=== PATIENT | male | born 2000 | race Caucasian/White ===

== ENCOUNTER 2021-12-28 14:36 | Emergency (ER) | payer OTHER ==
[2021-12-28] MEDS ORDERED: LIDOCAINE 1% MPF 5 ML VIAL ONE (15:06)
--- NOTE | 2021-12-28 15:14 | EDPHYS ---
Physician Documentation [facility] Name: Orlando Ferrara Age: 21 yrs Sex: Male : 2000 Arrival Date: 12/28/2021 Time: 14:39 Bed Waiting Private MD: ED Physician Davide Leroy HPI: 12/28 14:56 This 21 yrs old Male presents to ER via Ambulatory with complaints of Laceration To jmm Hand. 14:56 1-year-old male no chronic medical conditions presents emerged department with a jmm laceration to his left hand. This occurred after working with sheet metal. Patient does not have any concerns for foreign body. Patient is up-to-date on his tetanus immunization.. Historical: - Allergies: 14:57 No Known Allergies; ap3 - Home Meds: 14:57 None [Active]; ap3 - PMHx: 14:57 None; ap3 - Immunization history:: Last tetanus immunization: up to date. - Social history:: Smoking status: Reported history of juuling and/or vaping. Patient uses street drugs, marijuana. ROS: 14:56 Constitutional: Negative for fever, chills, and weight loss, Cardiovascular: Negative jmm for chest pain, palpitations, and edema, Respiratory: Negative for shortness of breath, cough, wheezing, and pleuritic chest pain. 14:56 Skin: Positive for laceration(s). 14:56 All other systems are negative. Exam: 14:56 Constitutional: This is a well developed, well nourished patient who is awake, alert, jmm and in no acute distress. Cardiovascular: Regular rate and rhythm. No edema appreciated Respiratory: Normal respirations, no respiratory distress appreciated 14:56 Back: Normal ROM 14:56 Musculoskeletal/extremity: 1 similar laceration noted to the left ulnar side of the palm of the left hand. 14:56 Musculoskeletal/extremity: Full range of motion appreciated to the left phalanx, PIP and DIP less than 2-second distal cap refill, neurovascular intact. 14:56 Skin: injury, laceration(s), the wound is approximately 1 cm(s). 14:56 Neuro: Orientation: is normal, Mentation: is normal, Memory: is normal. 14:56 Psych: Behavior/mood is pleasant, cooperative. Vital Signs: 14:56 BP 140 / 96; Pulse 87; Resp 17; Temp 98.4; Pulse Ox 100% ; Weight 90.72 kg; Height 6 ap3 ft. 1 in. (185.42 cm); Pain 2/10; 14:56 Body Mass Index 26.39 (90.72 kg, 185.42 cm) ap3 Laceration: 15:13 Wound Repair of 1cm ( 0.4in ) subcutaneous laceration to left hand. Distal jmm neuro/vascular/tendon intact. Anesthesia: Local anesthetic administered with 2 mls of 1% lidocaine. Wound prep: Simple cleansing with betadine by me. Skin closed with 4 5-0 Prolene using simple sutures and sterile technique. Patient tolerated well. MDM: 14:56 Patient medically screened. jmm 15:13 Data reviewed: vital signs, nurses notes. Counseling: I had a detailed discussion with jude the patient and/or guardian regarding: the historical points, exam findings, and any diagnostic results supporting the discharge/admit diagnosis, the need for outpatient follow up, to return to the emergency department if symptoms worsen or persist or if there are any questions or concerns that arise at home. ED course: Patient given wound infection return precautions. Patient understood agrees plan of care.. Administered Medications: No medications were administered Disposition: 16:09 Co-signature as Attending Physician, Davide Leroy DO I was immediately available on-site ms3 in the Emergency Department for consultation in the care of the patient.. Disposition Summary: 12/28/21 15:14 Discharge Ordered Location: Home [facility] Condition: Stable [facility] Diagnosis - Laceration of the Left Hand [facility] Followup: [facility] - With: Private Physician - When: 10 - 14 days - Reason: Recheck today's complaints, Continuance of care, Staple/Suture removal, Re-evaluation by your physician Discharge Instructions: - Laceration Care, Adult [facility] - Discharge Summary Sheet ap3 Forms: - Medication Reconciliation Form [facility] - Thank You Letter [facility] - Antibiotic Education [facility] - Prescription Opioid Use [facility] - Work release form ap3 Signatures: Grant Kelley PA PA jmm Prokisch, Amanda, RN RN ap3 Davide Leroy DO DO ms3
--- NOTE | 2021-12-28 15:14 | ER ---
Nurse's Notes [facility] Name: Orlando Ferrara Age: 21 yrs Sex: Male : 2000 Arrival Date: 12/28/2021 Time: 14:39 Bed Waiting [facility] MD: Diagnosis: Laceration of the Left Hand Presentation: 12/28 14:56 Chief complaint: Patient states: he cut his left hand on a piece of metal today. ap3 patient is able to move fingers. Coronavirus screen: At this time, the client does not indicate any symptoms associated with coronavirus-19. Ebola Screen: No symptoms or risks identified at this time. Complicating Factors: The type of wound is a puncture. Initial Sepsis Screen: Does the patient meet any 2 criteria? No. Patient's initial sepsis screen is negative. Does the patient have a suspected source of infection? No. Patient's initial sepsis screen is negative. Risk Assessment: Do you want to hurt yourself or someone else? Patient reports no desire to harm self or others. Onset of symptoms was December 28, 2021. 14:56 Method Of Arrival: Ambulatory ap3 14:56 Acuity: ROC 4 ap3 Triage Assessment: 14:57 General: Appears in no apparent distress. Behavior is calm, cooperative, appropriate ap3 for age. Pain: Complains of pain in medial aspect of left hand Pain currently is 2 out of 10 on a pain scale. Neuro: Level of Consciousness is awake, alert, obeys commands, Oriented to person, place, time, situation, Appropriate for age. Cardiovascular: Patient's skin is warm and dry. Respiratory: Airway is patent Respiratory effort is even, unlabored. Injury Description: Laceration sustained to medial aspect of left hand. Historical: - Allergies: 14:57 No Known Allergies; ap3 - Home Meds: 14:57 None [Active]; ap3 - PMHx: 14:57 None; ap3 - Immunization history:: Last tetanus immunization: up to date. - Social history:: Smoking status: Reported history of juuling and/or vaping. Patient uses street drugs, marijuana. Screenin:59 Abuse screen: Denies threats or abuse. Nutritional screening: No deficits noted. ap3 Tuberculosis screening: No symptoms or risk factors identified. Fall Risk None identified. Assessment: 14:59 Musculoskeletal: Range of motion: intact in all extremities. ap3 15:18 Injury Description: Laceration is clean. ap3 Vital Signs: 14:56 BP 140 / 96; Pulse 87; Resp 17; Temp 98.4; Pulse Ox 100% ; Weight 90.72 kg; Height 6 ap3 ft. 1 in. (185.42 cm); Pain 2/10; 14:56 Body Mass Index 26.39 (90.72 kg, 185.42 cm) ap3 ED Course: 14:39 Patient arrived in ED. as 14:42 Grant Kelley PA is PHCP. jude 14:42 Davide Leroy DO is Attending Physician. [facility] 14:57 Triage completed. ap3 14:59 Patient has correct armband on for positive identification. ap3 14:59 Arm band placed on right wrist. ap3 15:04 Assist provider with laceration repair on left hand that was 2.5 cm. or less using ap3 sutures. Set up tray. Performed by Grant HARRIS Patient tolerated well. 15:18 Patient did not have IV access during this emergency room visit. ap3 Administered Medications: No medications were administered Medication: 14:59 VIS not applicable for this client. ap3 Outcome: 15:14 Discharge ordered by . yun 15:18 Discharged to home ambulatory. ap3 15:18 Condition: good 15:18 Discharge instructions given to patient, Instructed on discharge instructions, follow up and referral plans. wound care, Demonstrated understanding of instructions, follow-up care, wound care. 15:18 Patient left the ED. ap3 Signatures: Grant Kelley PA PA jmm Martinez, Amelia as Prokisch, Amanda, RN RN ap3
[2021-12-28 15:34] VITALS: BP 140/96; TEMP 98.4; O2SAT 100
== END 2021-12-28 15:18 | disposition home or self-care (01) ==
LOC: ER 14:36
PROC: 0JQK0ZZ Repair Left Hand Subcutaneous Tissue and Fascia, Open Approach (ICD-10-PCS; principal; 2021-12-28)
DX: S61.412A Laceration without foreign body of left hand, initial encounter (principal); W26.8XXA Contact with other sharp object(s), not elsewhere classified, initial encounter
CPT/HCPCS: 99283

== ENCOUNTER 2022-01-30 11:00 | Observation (INO) | payer OTHER ==
[2022-01-30 11:49] LABS: Absolute Lymphocytes (CBC) 1.1 K/uL (0.7-4.9); Hematocrit 46.4 % (39.6-49.0); Lymphocytes % 7.5 % (15.3-44.8); MPV 8.3 fL (7.6-11.3); RBC Red Blood Cell Count 5.53 M/uL (4.33-5.43)
[2022-01-30 12:06] LABS: Albumin 4.2 g/dL (3.4-5.0); Bilirubin Total 0.8 mg/dL (0.2-1.0); Potassium 3.8 mmol/L (3.5-5.1); Protein, Total 7.7 g/dL (6.4-8.2)
--- NOTE | 2022-01-30 12:49 | RAD REPORT ---
EXAM DESCRIPTION: CTAbdomen Pelvis W Contrast - 01/30/2022 12:43 pm CLINICAL HISTORY: lower abdominal pain COMPARISON: No comparisons TECHNIQUE: CT of the abdomen and pelvis was performed. All CT scans are performed using dose optimization technique as appropriate and may include automated exposure control or mA/KV adjustment according to patient size. FINDINGS: Lower chest: Circumferential thickened distal esophagus suggests esophagitis. Liver: No acute abnormality or suspicious lesions. Biliary: No biliary ductal dilatation. Stomach: No significant focal abnormality. Duodenum: No significant focal abnormality. Pancreas: No significant abnormality. Spleen: No significant abnormality. Adrenal: No suspicious lesions. Kidney/ureter: No hydronephrosis. No renal calculi. Retroperitoneum: No retroperitoneal adenopathy. Vascular: No aneurysm. Bowel: Dilated appendix in the right lower quadrant. Periappendiceal stranding and fluid. No perforat ion or abscess.. Peritoneum: Free fluid the pelvis. Bladder: Grossly unremarkable. Reproductive: No adnexal masses. Bones: No acute fracture. Other: n/a IMPRESSION: Acute nonperforated appendicitis.
[2022-01-30] MEDS ORDERED: PIPERACIL/TAZO 3.375 GM VIAL IV ONE (13:11)
[2022-01-30] MEDS ORDERED: NA CHLORIDE 0.9% 100 ML ONE (13:11)
[2022-01-30] MEDS ORDERED: ONDANSETRON 4 MG/2 ML VIAL ONE ×3 (13:11→16:27)
[2022-01-30] MEDS ORDERED: MORPHINE 4 MG/ML SYR ONE (13:11)
[2022-01-30] MEDS ORDERED: NA CHLORIDE 0.9% 1,000 ML ONE (13:11)
--- NOTE | 2022-01-30 14:08 | ER ---
Nurse's Notes [facility] Name: Orlando Ferrara Age: 21 yrs Sex: Male : 2000 Arrival Date: 01/30/2022 Time: 11:01 Bed 9 Private MD: Diagnosis: Unspecified acute appendicitis Presentation: 01/30 11:35 Chief complaint: Patient states: generalized abd pain that began yesterday, reports he aa5 vomited today, reports constipation. Coronavirus screen: vomiting. Ebola Screen: Patient denies travel to an Ebola-affected area in the 21 days before illness onset. Initial Sepsis Screen: Does the patient meet any 2 criteria? No. Patient's initial sepsis screen is negative. Does the patient have a suspected source of infection? No. Patient's initial sepsis screen is negative. Risk Assessment: Do you want to hurt yourself or someone else? Patient reports no desire to harm self or others. Onset of symptoms was January 2022. 11:35 Acuity: ROC 3 aa5 11:35 Method Of Arrival: Ambulatory aa5 Historical: - Allergies: 11:34 No Known Allergies; aa5 - Home Meds: 11:34 None [Active]; aa5 - PMHx: 11:34 Asthma; aa5 - PSHx: 11:34 None; aa5 - Immunization history:: Adult Immunizations up to date, Client reports having NOT received the Covid vaccine. - Social history:: Smoking status: Patient denies any tobacco usage or history of. Patient/guardian denies using alcohol. Screenin:23 Abuse screen: Denies threats or abuse. Denies injuries from another. Nutritional ld1 screening: No deficits noted. Tuberculosis screening: No symptoms or risk factors identified. Fall Risk None identified. Assessment: 13:23 General: Appears in no apparent distress. comfortable, Behavior is calm, cooperative, ld1 appropriate for age. Pain: Complains of pain in right upper quadrant, left upper quadrant and right lower quadrant Pain does not radiate. Pain currently is 6 out of 10 on a pain scale. Neuro: Level of Consciousness is awake, alert, obeys commands, Oriented to person, place, time, situation. Cardiovascular: Capillary refill < 3 seconds Patient's skin is warm and dry. Respiratory: Airway is patent Respiratory effort is even, unlabored. GI: Abdomen is flat, non-distended, Bowel sounds present X 4 quads. Abd is soft Abdomen is tender to palpation X 4 quads. Reports lower abdominal pain, upper abdominal pain, nausea, vomiting. : No signs and/or symptoms were reported regarding the genitourinary system. EENT: No signs and/or symptoms were reported regarding the EENT system. Derm: No signs and/or symptoms reported regarding the dermatologic system. Musculoskeletal: No signs and/or symptoms reported regarding the musculoskeletal system. Vital Signs: 11:35 BP 127 / 87; Pulse 73; Resp 18 S; Temp 98.5(TE); Pulse Ox 100% on R/A; aa5 13:23 BP 135 / 64; Pulse 71; Resp 18; Pulse Ox 100% on R/A; Pain 6/10; ld1 14:38 BP 125 / 74; Pulse 69; Resp 18; Pulse Ox 100% on R/A; Pain 5/10; ld1 ED Course: 11:01 Patient arrived in ED. am2 11:34 Arm band placed on. aa5 11:37 Triage completed. aa5 11:38 Grant Kelley PA is PHCP. jmm 11:38 Fredi Gomez MD is Attending Physician. jmm 11:46 Initial lab(s) drawn, by wi, sent to lab. Inserted saline lock: 20 gauge in right upper aa5 arm, using aseptic technique. Blood collected. 12:45 CT Abd/Pelvis - IV Contrast Only In Process Unspecified. EDMS 13:00 Estephania Ibarra, TOM is Primary Nurse. ld1 13:23 Patient has correct armband on for positive identification. Placed in gown. Bed in low ld1 position. Call light in reach. Side rails up X2. log deckman on. Pulse ox on. NIBP on. Door closed. Noise minimized. Warm blanket given. 14:07 Ari Blount MD is Hospitalizing Provider. jm 14:38 SARS-COV-2 RT PCR (Document "Date of Onset" if Symptomatic) Sent. ld1 14:39 No provider procedures requiring assistance completed. Patient admitted, IV remains in ld1 place. Administered Medications: 13:22 Drug: NS 0.9% 1000 ml Route: IV; Rate: 1 bolus; Site: right antecubital; ld1 14:38 Follow up: Response: No adverse reaction; IV Status: Completed infusion; IV Intake: ld1 1000ml 13:22 Drug: Zofran (Ondansetron) 4 mg Route: IVP; Site: right antecubital; ld1 14:38 Follow up: Response: No adverse reaction ld1 13:22 Drug: morphine 4 mg Route: IVP; Infused Over: 4 mins; Site: right antecubital; ld1 14:38 Follow up: Response: No adverse reaction ld1 13:22 Drug: Zosyn (piperacillin-tazobactam) 3.375 grams Route: IVPB; Infused Over: 60 mins; ld1 Site: right antecubital; 14:38 Follow up: Response: No adverse reaction; IV Status: Completed infusion; IV Intake: ld1 100ml Medication: 13:23 VIS not applicable for this client. ld1 Intake: 14:38 IV: 100ml; Total: 100ml. ld1 14:38 IV: 1000ml; Total: 1100ml. ld1 Outcome: 14:07 Decision to Hospitalize by Provider. [facility] 14:39 Admitted to OR accompanied by nurse, via wheelchair. ld1 14:39 Condition: stable 14:39 Instructed on the need for admit. 14:39 Patient left the ED. ld1 Signatures: Dispatcher [employer] EDMS Grant Kelley PA PA jmm Calderon, Audri, RN RN [email or web address] Kamla Mccann Lauren, RN RN ld1 Corrections: (The following items were deleted from the chart) 11:35 11:34 PMHx: None; angie adams
--- NOTE | 2022-01-30 14:08 | EDPHYS ---
Physician Documentation [facility] Name: Orlando Ferrara Age: 21 yrs Sex: Male : 2000 Arrival Date: 01/30/2022 Time: 11:01 Bed 9 Private MD: ED Physician Fredi Gomez HPI: 01/30 11:37 This 21 yrs old Male presents to ER via Ambulatory with complaints of Abdominal Pain, jmm Nausea/Vomiting. 11:37 The patient presents with abdominal pain. Onset: The symptoms/episode began/occurred jmm gradually. The symptoms do not radiate. 14:03 The symptoms are described as achy. This is a 21 year old male with a history of asthma jmm that presents to the ED with complains of generalized abdominal pain, vomiting. Denies diarrhea. . Historical: - Allergies: 11:34 No Known Allergies; aa5 - Home Meds: 11:34 None [Active]; aa5 - PMHx: 11:34 Asthma; aa5 - PSHx: 11:34 None; aa5 - Immunization history:: Adult Immunizations up to date, Client reports having NOT received the Covid vaccine. - Social history:: Smoking status: Patient denies any tobacco usage or history of. Patient/guardian denies using alcohol. ROS: 14:03 Constitutional: Negative for fever, chills, and weight loss, Cardiovascular: Negative jmm for chest pain, palpitations, and edema, Respiratory: Negative for shortness of breath, cough, wheezing, and pleuritic chest pain. 14:03 Abdomen/GI: Positive for abdominal pain. 14:03 All other systems are negative. Exam: 14:03 Constitutional: This is a well developed, well nourished patient who is awake, alert, jmm and in no acute distress. Head/Face: atraumatic. Eyes: EOMI, no conjunctival erythema appreciated ENT: Moist Mucus Membranes Neck: Trachea midline, Supple Chest/axilla: Normal chest wall appearance and motion. Cardiovascular: Regular rate and rhythm. No edema appreciated Respiratory: Normal respirations, no respiratory distress appreciated 14:03 Back: Normal ROM Skin: General appearance color normal MS/ Extremity: Moves all extremities, no obvious deformities appreciated, no edema noted to the lower extremities Neuro: Awake and alert Psych: Behavior is normal, Mood is normal, Patient is cooperative and pleasant 14:03 Abdomen/GI: Inspection: abdomen appears normal, Bowel sounds: normal, Palpation: soft, mild abdominal tenderness, in the right lower quadrant. Vital Signs: 11:35 BP 127 / 87; Pulse 73; Resp 18 S; Temp 98.5(TE); Pulse Ox 100% on R/A; aa5 13:23 BP 135 / 64; Pulse 71; Resp 18; Pulse Ox 100% on R/A; Pain 6/10; ld1 14:38 BP 125 / 74; Pulse 69; Resp 18; Pulse Ox 100% on R/A; Pain 5/10; ld1 MDM: 11:39 Patient medically screened. [facility] 14:05 Data reviewed: vital signs, nurses notes. Counseling: I had a detailed discussion with jude the patient and/or guardian regarding: the historical points, exam findings, and any diagnostic results supporting the discharge/admit diagnosis, lab results, radiology results, the need for further work-up and treatment in the hospital. ED course: I discussed the patient with Dr. Blount whom accepted the patient. . 01/30 11:37 Order name: CBC with Diff; Complete Time: 11:58 [facility] 01/30 11:37 Order name: CMP; Complete Time: 12:08 [facility] 01/30 11:37 Order name: Lipase; Complete Time: 12:08 [facility] 01/30 14:04 Order name: SARS-COV-2 RT PCR (Document "Date of Onset" if Symptomatic) 01/30 14:18 Order name: Basic Metabolic Panel [facility] 01/30 14:18 Order name: Basic Metabolic Panel [facility] 01/30 11:46 Order name: CT Abd/Pelvis - IV Contrast Only; Complete Time: 12:51 [facility] 01/30 14:18 Order name: CBC with Automated Diff [facility] 01/30 14:18 Order name: CBC with Automated Diff [facility] 01/30 14:18 Order name: Lipase [facility] 01/30 14:18 Order name: Lipase [facility] 01/30 14:18 Order name: Liver (Hepatic) Function [facility] 01/30 14:18 Order name: Liver (Hepatic) Function [facility] 01/30 11:37 Order name: IV Saline Lock; Complete Time: 11:46 [facility] 01/30 11:37 Order name: Labs collected and sent; Complete Time: 11:46 [facility] 01/30 14:18 Order name: NPO EDMS Administered Medications: 13:22 Drug: NS 0.9% 1000 ml Route: IV; Rate: 1 bolus; Site: right antecubital; ld1 14:38 Follow up: Response: No adverse reaction; IV Status: Completed infusion; IV Intake: ld1 1000ml 13:22 Drug: Zofran (Ondansetron) 4 mg Route: IVP; Site: right antecubital; ld1 14:38 Follow up: Response: No adverse reaction ld1 13:22 Drug: morphine 4 mg Route: IVP; Infused Over: 4 mins; Site: right antecubital; ld1 14:38 Follow up: Response: No adverse reaction ld1 13:22 Drug: Zosyn (piperacillin-tazobactam) 3.375 grams Route: IVPB; Infused Over: 60 mins; ld1 Site: right antecubital; 14:38 Follow up: Response: No adverse reaction; IV Status: Completed infusion; IV Intake: ld1 100ml Disposition Summary: 01/30/22 14:07 Hospitalization Ordered Hospitalization Status: Observation [facility] Provider: Ari Blount Location: Telemetry/MedSurg (observation) [facility] Condition: Stable [facility] Problem: new [facility] Symptoms: are unchanged [facility] Bed/Room Type: Standard [facility] Room Assignment: [facility] Diagnosis - Unspecified acute appendicitis [facility] Forms: - Medication Reconciliation Form m - SBAR form [facility] Signatures: Dispatcher [employer] EDMS Grant Kelley PA PA Linh Zabala RN RN aa5 sEtephania Ibarra RN RN ld1 Corrections: (The following items were deleted from the chart) 11:35 11:34 PMHx: None; aa5 aa5
[2022-01-30] MEDS ORDERED: ACETAMINOPHEN 500 MG TAB PO PRN (14:14)
[2022-01-30] MEDS ORDERED: Ringers Lactate 1,000 ML IV ONE (14:49)
[2022-01-30] MEDS ORDERED: ROCURONIUM 50 MG/5 ML VIAL IV ONE (14:53)
[2022-01-30] MEDS ORDERED: propofoL 200 MG/20 ML VIAL IV ONE (14:53)
[2022-01-30] MEDS ORDERED: MIDAZOLAM HCL 2 MG/2 ML INJ ONE (14:53)
[2022-01-30] MEDS ORDERED: FENTANYL CITR 100 MCG/2 ML ONE (14:53)
[2022-01-30] MEDS ORDERED: LIDOCAINE 1% MPF 2 ML AMPULE ONE (14:57)
[2022-01-30] MEDS ORDERED: D5 0.45 NS 1,000 ML IV SCH (15:00)
--- NOTE | 2022-01-30 15:06 | P.HP ---
Date of Service: 01/30/22 Chief complaint: Abdominal pain History of present Illness: 21-year-old gentleman who comes in with 2 days of malaise and 1 day of abdominal pain. Pain is diffuse, periumbilical in nature associated with nausea and vomiting. No diarrhea but patient does have constipation. No blood in his stool. No dysuria or hematuria. No sore throat, runny nose, headaches, dizziness, chest pain, fever or chills. Patient is anorexic. Review of systems: Otherwise unremarkable Past medical history: Asthma Past surgical history: Minor hand surgery Allergies: None Social history: Patient vapes and drinks occasionally Family history: Noncontributory Vital signs: Stable, afebrile Physical exam:Awake alert oriented x3 Headand neck: Cranial nerves II through XII grossly within normal limits, no neck masses, no JVD, throat clear and neck supple. Chest: Clear Heart: S1-S2 Abdomen: Soft, nondistended, positive bowel sounds, right lower quadrant tenderness with rebound but no rigidity or guarding. Extremity: Nontender Neuro: Nonfocal Diagnostic data: CT of the abdomen pelvis shows acute appendicitis with no evidence of perforation or abscess. Laboratory data reviewed, white count is 14.2 thousand Assessment: Acute appendicitis Plan/recommendation: Admit, n.p.o., IV fluids, IV antibiotics and to the OR for laparoscopic appendectomy possible open. Patient and family understands risks, benefits, alternatives and agrees to procedure. CC:
[2022-01-30] MEDS ORDERED: GLYCOPYRROLATE 0.2 MG/ML SYR ONE (15:55)
[2022-01-30] MEDS ORDERED: NEOSTIGMINE 1 MG/ML -10 ML VIAL ONE (15:55)
[2022-01-30] MEDS ORDERED: KETOROLAC 30 MG/ML INJ ONE (15:57)
--- NOTE | 2022-01-30 16:08 | P.OP ---
Date of Service: 01/30/22 Preop diagnosis: Acute appendicitis Postop diagnosis: Same Procedure performed: Laparoscopic appendectomy Surgeon: Ari Blount MD Unit Tender: Jessica CURRY Estimated blood loss: Minimal Specimen: Appendix Findings: As above Anesthesia: General Complications: None Drains: None Fluids and blood products: Nonapplicable Disposition: Recovery room Operative note: Patient brought to the OR and placed in the supine position. General anesthesia begun. Patient prepped and draped in the usual sterile fashion. Marcaine 0.5% infiltrated locally. 15 blade used to make a 1 cm supraumbilical midline incision. Subcutaneous tissue divided and fascia identified and divided. #1 Vicryl stay suture placed. Peritoneal cavity entered with sharp and blunt dissection. 12 mm trocar placed into the peritoneal cavity under direct vision. Pneumoperitoneum established. 2 5 mm trochars placed, 1 in the left lower quadrant region and 1 in the suprapubic region. Laparoscopy revealed acute suppurative appendicitis. Appendix was dilated and indurated with fibrinous exudate. There was some serous fluid in the pelvis which was aspirated. Small bowel, colon, gallbladder and peritoneal surface were all within normal limits. Base of the appendix and mesoappendix clearly identified. Endo EVANGELINA stapling device used to divide both structures. Appendix was retrieved through the umbilicus via Endo Catch bag. Right lower quadrant and pelvis irrigated. No evidence of bleeding or bowel injury appreciated. All trochars removed under direct vision. Stay sutures tied to each other to reapproximate the fascial defect. Subcutaneous wound was irrigated and bleeding controlled with cautery. 3-0 chromic used to approximate subcutaneous tissue and close skin. Sterile dressing applied. Patient awakened and taken to recovery room in good general condition. CC:
[2022-01-30] MEDS ORDERED: ONDANSETRON 4 MG/2 ML VIAL IV PRN (16:24)
[2022-01-30] MEDS ORDERED: HYDROCODONE/APAP 7.5/325 MG TAB PO PRN (16:24)
[2022-01-30] MEDS ORDERED: HYDROMORPHONE HCL 1 MG/ML INJ ONE (16:27)
[2022-01-30] MEDS: Ringers Lactate 1,000 ML IV SCH (17:00)
[2022-01-30 17:04] VITALS: BMI 29.2
[2022-01-30] MEDS: PIPER TAZO 3.375 GM in NA CHLORIDE 0.9% 100 ML IV SCH (17:23)
[2022-01-30] MEDS: HYDROMORPHONE HCL 1 MG/ML INJ IV PRN (19:25)
[2022-01-31] MEDS: Ringers Lactate 1,000 ML IV SCH ×2 (00:13→09:00)
[2022-01-31] MEDS: PIPER TAZO 3.375 GM in NA CHLORIDE 0.9% 100 ML IV SCH ×2 (00:13→08:49)
[2022-01-31] MEDS: HYDROMORPHONE HCL 1 MG/ML INJ IV PRN ×2 (00:13→03:43)
[2022-01-31 03:46] LABS: Absolute Lymphocytes (CBC) 1.1 K/uL (0.7-4.9); Hematocrit 41.7 % (39.6-49.0); Lymphocytes % 9.6 % (15.3-44.8); MPV 8.9 fL (7.6-11.3); RBC Red Blood Cell Count 4.98 M/uL (4.33-5.43)
[2022-01-31 05:03] VITALS: O2SAT 100
--- NOTE | 2022-01-31 07:57 | P.DS ---
Admission Date: 01/30/22 Discharge Date: 01/31/22 Disposition: ROUTINE DISCHARGE Discharge Condition: GOOD - Problems (1) Appendicitis Current Visit: Yes Status: Acute Qualifiers: Appendicitis type: acute appendicitis Acute appendicitis type: with localized peritonitis Appendicitis gangrene presence: without gangrene Appendicitis perforation presence: without perforation Appendicitis abscess presence: without abscess Qualified Code(s): K35.30 - Acute appendicitis with localized peritonitis, without perforation or gangrene Brief History of Present Illness: Patient is a 21-year-old gentleman who presented to the emergency room yesterday with acute onset of abdominal pain. Work-up in the ER revealed acute appendicitis. Hospital Course: Patient evaluated and started on IV antibiotics. Patient taken to the OR for laparoscopic appendectomy. An uneventful appendectomy performed. Postoperatively patient is tolerating diet, ambulating, pain controlled on p.o. pain medication and afebrile. Therefore, patient will be discharged to home. Disposition: Home Condition: Stable Activity: As tolerated, no lifting more than 10 pounds, incentive spirometry as ordered Medications: Augmentin 875 p.o. twice daily, Tylenol 3 1 tablet p.o. every 4 as needed pain Dressing: Remove outer dressing in a.m. and shower, keep Steri-Strips on at all times Follow-up: Follow-up in my office in 1 week, call for appointment Vital Signs/Physical Exam: Temp Pulse Resp BP Pulse Ox 97.2 F 60 19 125/67 100 01/31/22 04:00 01/31/22 04:00 01/31/22 04:13 01/31/22 04:00 01/31/22 04:13 Laboratory Data at Discharge: WBC 11.8 K/uL (4.3-10.9) H D 01/31/22 03:11 Hgb 14.9 g/dL (13.6-17.9) 01/31/22 03:11 Hct 41.7 % (39.6-49.0) 01/31/22 03:11 Plt Count 236 K/uL (152-406) 01/31/22 03:11 Sodium 138 mmol/L (136-145) 01/30/22 11:43 Potassium 3.8 mmol/L (3.5-5.1) 01/30/22 11:43 BUN 12 mg/dL (7-18) 01/30/22 11:43 Creatinine 0.91 mg/dL (0.55-1.3) 01/30/22 11:43 Glucose 98 mg/dL (74-106) 01/30/22 11:43 Total Bilirubin 0.8 mg/dL (0.2-1.0) 01/30/22 11:43 AST 15 U/L (15-37) 01/30/22 11:43 ALT 41 U/L (12-78) 01/30/22 11:43 Alkaline Phosphatase 59 U/L (45-117) 01/30/22 11:43 Lipase 59 U/L (73-393) L 01/30/22 11:43 Home Medications: NK [No Home Meds] 01/30/22 Physician Discharge Instructions: Remove outer dressing in a.m. and shower Keep Steri-Strips on at all times Incentive spirometry as ordered Augmentin 875 and Tylenol 3 called into patient's pharmacy Diet: Regular Activity: No lifting more than 10 lbs Followup: NONE,NONE [Primary Care Provider] - Ari Blount MD [Family Provider] - 1 Week
[2022-01-31 08:10] VITALS: BP 115/64; TEMP 98.2
== END 2022-01-31 10:05 | disposition home or self-care (01) ==
LOC: ER 11:00 → DS 14:11 → 2ND 16:30 → 4TH 19:30
PROVIDERS: ADMIT Surgery; ATTEND Surgery
PROC: 0DTJ4ZZ Resection of Appendix, Percutaneous Endoscopic Approach (ICD-10-PCS; principal; 2022-01-30 14:30)
DX: K35.30 Acute appendicitis with localized peritonitis, without perforation or gangrene (principal); K59.00 Constipation, unspecified; J45.909 Unspecified asthma, uncomplicated; R63.0 Anorexia; Z68.29 Body mass index [BMI] 29.0-29.9, adult; F17.290 Nicotine dependence, other tobacco product, uncomplicated; Z28.310 Unvaccinated for COVID-19; Z20.822 Contact with and (suspected) exposure to COVID-19
CPT/HCPCS: 96365; 85025 ×2; 36415; 88304; 83690; 80053; 74177; 94010; 96375; 99285; 44970; U0003; Q9967; J2704; J2710; J2543 ×3; J2250; J3010; J1170 ×4; J7120 ×2; J7030; J2405 ×3; G0378